=== PATIENT | male | born 1955 | race Two or more races ===

== ENCOUNTER 2024-04-24 11:28 | Emergency (ER) | payer OTHER ==
[~2024-04-24] VITALS: Ht 170.2 cm; Wt 69.4 kg
[2024-04-24] MEDS ORDERED: 0.9 % SODIUM CHLORIDE 1,000 ML IV SCH (11:45)
[2024-04-24] MEDS ORDERED: ZESTRIL20 MG PO (11:47)
[2024-04-24] MEDS ORDERED: TOPROL XL25 M1 PO (11:48)
[2024-04-24] MEDS ORDERED: SYNTHROID75 MCG PO (11:48)
[2024-04-24] MEDS ORDERED: ZOCOR40 MG PO (11:48)
[2024-04-24 12:21] LABS: HEMATOCRIT 39.1 % (39.0-48.0); HEMOGLOBIN 13.5 g/dL (13-16.00); MEAN CELL VOLUME 93.8 fL (80.0-100.00); MEAN CORPUSCULAR HEMOGLOBIN 32.2 pg (27.00-32.0); MEAN CORPUSCULAR HGB CONC 34.4 g/dl (32.0-36.0); PLATELET COUNT 260 K/uL (150-450); RED BLOOD COUNT 4.17 M/uL (4.00-6.00); RED CELL DISTRIBUTION WIDTH 12.9 % (11.5-14.5)
[2024-04-24 12:36] LABS: ABG PO2 99.1 mmHg (80-100); ABG pCO2 42.4 mmHg (35-45); BASE EXCESS -0.6 mmol/l; BICARBONATE 24.6 mmol/l (23-25); SaO2 97.5 %; Tco2 25.9 mmol/l; allen test SATISFACTORY; o2 21 %; puncture site RADIAL RIGHT
[2024-04-24 12:38] LABS: CALCIUM 9.5 mg/dL (8.5-10.1); CREATININE SERUM 1.65 mg/dL (0.70-1.30); GFR 41.45; POTASSIUM 4.07 mEq/L (3.5-5.1)
[2024-04-24 14:00] LABS: PH,URINE 5.5 (5.0-8.0); URINE APPEARANCE Cloudy; URINE BACTERIA 183.9 uL (0.0-1933); URINE BILIRRUBIN Negative (NEGATIVE); URINE COLOR Yellow; URINE EPITHELIAL CELLS 68.6 uL (0.0-38.8); URINE GLUCOSE Negative (NEGATIVE); URINE LEUKOCYTE Negative; URINE NITRATE Negative; URINE PROTEIN 30 (NEGATIVE); URINE RBC 7.4 uL (0.0-20.8); URINE WBC 64.7 uL (0.0-23.2)
[2024-04-24 14:32] LABS: URINE BLOOD Trace; URINE SPERM MODERATE
[2024-04-24 14:33] LABS: URINE EPITHELIAL CELLS 0-4 /HPF
== END 2024-04-24 14:56 | disposition home or self-care (01) ==
LOC: ER 11:29
PROVIDERS: Emergency Medicine
DX: R55 Syncope and collapse (principal); E78.00 Pure hypercholesterolemia, unspecified; E03.8 Other specified hypothyroidism; I10 Essential (primary) hypertension